=== PATIENT | male | born 1995 | race Caucasian/White ===

== ENCOUNTER 2020-04-24 13:27 | Emergency (ER) | payer BC ==
[~2020-04-24] VITALS: Ht 185.4 cm; Wt 74.8 kg
[2020-04-24] MEDS ORDERED: ALBUTEROL/IPRATROPIUM 3 ML NEB NEB ONE ×2 (14:00→14:50)
[2020-04-24] MEDS ORDERED: METHYLPREDNISOLONE SOD SUCC 125 MG/2ML VIAL IV ONE (14:00)
[2020-04-24] MEDS ORDERED: DEXAMETHASONE SOD PHOS INJ 4 MG/ML VIAL ONE (14:04)
[2020-04-24] MEDS ORDERED: ALBUTEROL/IPRATROPIUM 3 ML NEB ONE ×2 (14:04→15:20)
[2020-04-24] MEDS ORDERED: DEXAMETHASONE SOD PHOS 10 MG/1 ML VIAL IV ONE (14:50)
[2020-04-24] MEDS ORDERED: SILVER NITRATE SWABS ONE (20:46)
== END 2020-04-24 15:43 | disposition home or self-care (01) ==
LOC: EDSEX 13:27 → FSED 14:00
DX: J20.9 Acute bronchitis, unspecified (principal); J45.901 Unspecified asthma with (acute) exacerbation; R06.02 Shortness of breath
CPT/HCPCS: 71045; 80053; 85025; 99284; J1100